=== PATIENT | female | born 1980 | race Native Hawaiian/Other Pacific Islander ===

== ENCOUNTER 2017-05-21 18:18 | Emergency (ER) | payer OTHER ==
[~2017-05-21] VITALS: Ht 157.5 cm; Wt 59.0 kg
[2017-05-21 18:27] VITALS: TEMP 98.8
[2017-05-21] MEDS ORDERED: NEURONTIN800 MG PO (18:43)
[2017-05-21] MEDS ORDERED: HYDR10TA47 PO (18:44)
[2017-05-21] MEDS ORDERED: DIAZEPAM10 MG PO (18:44)
[2017-05-21] MEDS ORDERED: TIZA4TAB5 PO (18:44)
[2017-05-21 21:03] LABS: PLATELET COUNT 241 K/uL (152-353)
[2017-05-21 21:15] LABS: POTASSIUM 3.5 mmol/L (3.6-5.2); SODIUM 137 mmol/L (136-145)
[2017-05-21 23:14] VITALS: BP 122/72
== END 2017-05-21 23:15 | disposition home or self-care (01) ==
LOC: ED 18:18
PROVIDERS: Specialist
DX: K57.92 Diverticulitis of intestine, part unspecified, without perforation or abscess without bleeding (principal)
CPT/HCPCS: 36415; 80053; 81000; 82150; 83690; 85027; 96361; 96374; 96375; 99284; J1885; J2175; J2550

== ENCOUNTER 2020-06-20 12:21 | Outpatient (CLI) | payer OTHER ==
[~2020-06-20 12:21] MED LIST: DIAZEPAM10 MG PO; HYDR10TA47 PO; NEURONTIN800 MG PO; TIZA4TAB5 PO
== END 2020-06-20 23:59 | disposition home or self-care (01) ==
LOC: CT 12:21
DX: N20.0 Calculus of kidney (principal); R50.9 Fever, unspecified; R10.829 Rebound abdominal tenderness, unspecified site; R31.21 Asymptomatic microscopic hematuria

== ENCOUNTER 2021-07-20 09:11 | Outpatient (CLI) | payer OTHER | END 2021-07-20 20:09 | disposition home or self-care (01) | LOC: RAD 09:11 | PROVIDERS: ATTEND Nurse Practitioner Family | DX: Z03.89 Encounter for observation for other suspected diseases and conditions ruled out (principal) ==

== ENCOUNTER 2021-08-02 15:54 | Outpatient (CLI) | payer OTHER | END 2021-08-02 19:33 | disposition home or self-care (01) | LOC: RAD 15:54 | PROVIDERS: ATTEND Nurse Practitioner Family | DX: U07.1 COVID-19 (principal) ==

== ENCOUNTER 2021-09-04 10:33 | Outpatient (CLI) | payer OTHER ==
[2021-09-04 10:48] LABS: PLATELET COUNT 355 K/uL (152-353)
[2021-09-04 11:15] LABS: POTASSIUM 3.1 mmol/L (3.6-5.2)
[2021-09-04] MEDS ORDERED: CELEXA40 MG PO (16:36)
== END 2021-09-04 19:33 | disposition home or self-care (01) ==
LOC: LABW 10:33
PROVIDERS: ATTEND Nurse Practitioner Family
DX: M79.605 Pain in left leg (principal)
CPT/HCPCS: 36415; 80053; 85027; 85379

== ENCOUNTER 2021-09-04 13:00 | Observation (INO) | payer OTHER ==
[~2021-09-04] VITALS: Ht 157.5 cm; Wt 58.7 kg
--- NOTE | 2021-09-04 15:15 | NUR ---
PT ADMITTED TO [facility] VIA WHEELCHAIR FOR DVT OF LT LOWER EXT, NAD NOTED, PT AMBULATED TO BED WITHOUT DIFFICULTY, NONLABORED BREATHING, LT LEG NOTED TO BE SWOLLEN AND REDDNESS TO LOWER LEG, PT RATES HER PAIN AT A #4 ON 0-10 PAIN SCALE AND STATES THE PAIN AND ISSUES WITH HER LEG STARTED WHEN SHE WAS DIAGNOSED WITH COVID ON June, PT REPORTS NO OTHER ISSUES AT THIS TIME, PT ORIENTED TO CALL LIGHT AND RM, PT VERBALIZED UNDERSTANDING, CALL LIGHT WITHIN REACH, WILL CONTINUE TO MONITOR
[2021-09-04 15:33] LABS: PLATELET COUNT 322 K/uL (152-353)
[2021-09-04 15:52] LABS: POTASSIUM 3.1 mmol/L (3.6-5.2); SODIUM 138 mmol/L (136-145)
[2021-09-04 16:15] VITALS: BP 118/61; TEMP 99.1; Ht 157.5 cm; Wt 58.7 kg
[2021-09-04] MEDS ORDERED: CELEXA40 MG PO (16:36)
[2021-09-04 20:00] VITALS: BP 98/87; TEMP 99.7
--- NOTE | 2021-09-04 22:49 | NUR ---
PT RESTING WELL AT THIS TIME. STATED HER LEG PAIN WAS ABOUT A 3 ON PAIN SCALE. LEFT LEG WARM TO TOUCH AND EDEMATOUS. PEDAL PULSES PRESENT IN BOTH FEET.
[2021-09-05] VITALS: BP 113/56; TEMP 98.8
--- NOTE | 2021-09-05 03:40 | NUR ---
PT SLEEPING. NO PAIN OR DISTRESS NOTED.
[2021-09-05 04:00] VITALS: BP 99/56; TEMP 98.9
--- NOTE | 2021-09-05 06:24 | NUR ---
PT RESTING WELL AT THIS TIME. NO VOICED COMPLAINTS OF DISCONFORT.
[2021-09-05 08:00] VITALS: BP 98/70; TEMP 98.1
--- NOTE | 2021-09-05 08:04 | NUR ---
PT LYING IN LF RESTING, NAD NOTED, NONLABORED BREATHING, PT HAS NO NEEDS AT THIS TIME, PT STATES HER LEG FEELS BETTER BUT FEELS SORE THIS AM, IV TO RT WRIST INTACT AND SL, CALL LIGHT WITHIN REACH WILL CONTINUE TO MONITOR
--- NOTE | 2021-09-05 08:19 | NUR ---
INFORMED DR. PACHECO OF WHAT PMD WEBSITE STATED ON PT'S HOME MED LIST, DR. PACHECO ORDERS TO RESTART HOME MEDS AT HALF OF THE DOSE SHE TOOK AT HOME, NO FURTHER ORDERS GIVEN AT THIS TIME
[2021-09-05 10:06] LABS: PLATELET COUNT 346 K/uL (152-353)
[2021-09-05 10:19] LABS: POTASSIUM 3.7 mmol/L (3.6-5.2)
[2021-09-05 10:25] LABS: PARTIAL THROMBOPLASTIN TIME 28.5 SECONDS (24.5-33.6)
[2021-09-05 12:00] VITALS: BP 100/57; TEMP 98.1
--- NOTE | 2021-09-05 15:36 | NUR ---
ALISON FROM PHARMACY IN WITH PT TO GIVE EDUCATION ON NEW MEDICATION ELIQUIS AND ANSWER ANY QUESTIONS THE PT MAY HAVE
[2021-09-05 16:00] VITALS: BP 114/47; TEMP 97.7
--- NOTE | 2021-09-05 18:15 | NUR ---
DR. PACHECO IN WITH PT GIVEN DISCHARGE INSTRUCTIONS, DR. PACHECO EDUCATED PT ON NOT SQUATTING EVER AGAIN UNLESS BENDING DOWN TO PICK SOMETHING UP, ON LONG CAR RIDES PT IS TO STOP EVERY HOUR TO GET OUT AND MOVE, PT NOT TO CROSS LEGS, PT IS TO WEAR COMPRESSION STOCKINGS AND MAY RETURN TO WORK ONCE SHE HAS THE STOCKINGS, EDUCATION GIVEN ON SMOKING CESSATION, BUERGER'S SYNDROME, AND ELIQUIS, PT VERBALIZED UNDERSTANDING, PT TO FOLLOWUP WITH DR. PACHECO ON 09/12/21 AT 1130. IV REMOVED WITH CATHETER INTACT.
--- NOTE | 2021-09-05 18:45 | NUR ---
PT DC VIA AMBULATION TO PERSONAL VEHICLE WITH BELONGINGS IN HAND AND ELIQUIS MEDICATION, NAD NOTED
== END 2021-09-05 19:30 | disposition home or self-care (01) ==
LOC: US 13:00 → MED/SURG 14:25
PROVIDERS: ADMIT Family Medicine; ATTEND Family Medicine
DX: U09.9 Post COVID-19 condition, unspecified (principal); I82.409 Acute embolism and thrombosis of unspecified deep veins of unspecified lower extremity; M79.605 Pain in left leg
CPT/HCPCS: 36415; 80053; 81000; 82550; 83735; 84100; 84484; 85027; 85610; 85730; 86140; 87040; 87635; 93005; 96372; 99220; G0378; J1650; U0003